=== PATIENT | female | born 1975 | race Caucasian/White ===

== ENCOUNTER 2016-12-16 11:03 | Inpatient (IN) | payer MEDICARE, OTHER ==
[~2016-12-16] VITALS: Ht 167.6 cm; Wt 52.1 kg
[2016-12-16] MEDS ORDERED: LORazepam 2 MG/ML VIAL ONE (11:12)
[2016-12-16 11:28] LABS: BASOPHILS # (AUTO) 0.06 K/uL (0.00-0.20); BASOPHILS % (AUTO) 0.4 % (0.0-2.0); EOSINOPHILS % (AUTO) 0.74 % (1.0-6.0); HEMATOCRIT 45.1 % (36-46); HEMOGLOBIN 15.3 g/dL (12.0-16.0); LYMPHOCYTES % (AUTO) 46.4 % (22.0-44.0); MEAN CORPUSCULAR HEMOGLOBIN 30.5 pg (26.0-34.0); MEAN CORPUSCULAR VOLUME 90 fL (80-100); MONOCYTES # (AUTO) 0.5 K/uL (0.1-1.0); MONOCYTES % (AUTO) 4.1 % (2.0-9.0); NEUTROPHILS # (AUTO) 6.3 K/uL (1.8-7.7); NEUTROPHILS % (AUTO) 48.4 % (40.0-70.0); PLATELET COUNT (AUTO) 253 K/uL (150-450); RED BLOOD CELL COUNT(AUTO) 5.04 MIL/uL (4.00-5.20); RED CELL DISTRIBUTION WIDTH 13.1 % (11.5-14.5)
[2016-12-16] MEDS ORDERED: LORazepam 2 MG/ML VIAL IVP ONE ×4 (11:30→12:30)
[2016-12-16] MEDS ORDERED: CALC-879 PO (11:40)
[2016-12-16] MEDS ORDERED: ENOX40DI9 SQ (11:40)
[2016-12-16] MEDS ORDERED: PARO20TA24 PO (11:40)
[2016-12-16] MEDS ORDERED: DONE5TAB PO (11:40)
[2016-12-16] MEDS ORDERED: OXYB5 PO ×2 (11:40)
[2016-12-16] MEDS ORDERED: OMEP20 PO (11:40)
[2016-12-16] MEDS ORDERED: BACL10TA PO (11:40)
[2016-12-16] MEDS ORDERED: DIME240C2 PO (11:40)
[2016-12-16] MEDS ORDERED: DIVA250T25 PO (11:40)
[2016-12-16 11:41] LABS: ANION GAP 14 mmol/L (8-16); CALCIUM, TOTAL 8.6 mg/dL (8.8-10.5); CARBON DIOXIDE 25 mmol/L (22-29); CHLORIDE 100 mmol/L (98-107); CREATININE 0.69 mg/dL (0.60-1.30); GLOMERULAR FILTR. RATE CALC > 60 mL/min (>60); POTASSIUM 3.9 mmol/L (3.5-5.1); SODIUM SERUM 139 mmol/L (136-145); UREA NITROGEN, BLOOD 12 mg/dL (7-18)
[2016-12-16 11:48] LABS: ALANINE AMINOTRANSFERASE 24 U/L (12-78); ALBUMIN 3.4 g/dL (3.4-5.0); ASPARTATE AMINOTRANSFERASE 9 U/L (15-37); BILIRUBIN,TOTAL 0.3 mg/dL (0.1-1.0); TOTAL PROTEIN, SERUM 6.9 g/dL (6.4-8.2); VALPROIC ACID 33 mcg/mL (50-100)
[2016-12-16] MEDS ORDERED: VALPROATE SODIUM 250 MG in DEXTROSE 5%-WATER 50 ML IV ONE (12:15)
[2016-12-16] MEDS ORDERED: VALPROATE SODIUM 750 MG in DEXTROSE 5%-WATER 100 ML IV ONE (13:45)
[2016-12-16] MEDS ORDERED: LORazepam 2 MG/ML VIAL IM ONE (15:00)
[2016-12-16] MEDS ORDERED: HALOPERIDOL LACTATE 5 MG/ML VIAL ONE (15:16)
[2016-12-16] MEDS ORDERED: HALOPERIDOL LACTATE 5 MG/ML VIAL IM ONE (15:30)
[2016-12-16 19:21] LABS: APPEARANCE,URINE CLOUDY (CLEAR); GLUCOSE, URINE (UA) NEGATIVE (NEGATIVE); KETONES,URINE TRACE mg/dL (NEGATIVE); LEUKOCYTE ESTERASE ,URINE NEGATIVE (NEGATIVE); OCCULT BLOOD,URINE LARGE (NEGATIVE); PH,URINE 7.5 (5.0-8.0); PROTEIN,URINE TRACE (NEGATIVE)
[2016-12-16 19:31] LABS: AMORPHOUS SEDIMENT,UR Moderate /LPF (None Seen); RBC,URINE 26-50 /HPF (0-2); WBC,URINE None Seen /HPF (0-5)
[2016-12-16 21:23] VITALS: BP 107/67
[2016-12-17] VITALS (8 sets, daily range): BP systolic 103–133; BP diastolic 52–76
[2016-12-17 06:48] LABS: BASOPHILS # (AUTO) 0.04 K/uL (0.00-0.20); BASOPHILS % (AUTO) 0.3 % (0.0-2.0); EOSINOPHILS # (AUTO) 0.02 K/uL (0.00-0.70); EOSINOPHILS % (AUTO) 0.17 % (1.0-6.0); HEMATOCRIT 42.1 % (36-46); HEMOGLOBIN 14.3 g/dL (12.0-16.0); LYMPHOCYTES # (AUTO) 4.7 K/uL (1.0-4.8); MEAN CORPUSCULAR HEMOGLOBIN 30.5 pg (26.0-34.0); MEAN CORPUSCULAR HGB CONC 33.9 G/dL (31.0-37.0); MEAN CORPUSCULAR VOLUME 90 fL (80-100); MONOCYTES # (AUTO) 1.2 K/uL (0.1-1.0); MONOCYTES % (AUTO) 8.5 % (2.0-9.0); NEUTROPHILS # (AUTO) 7.9 K/uL (1.8-7.7); PLATELET COUNT (AUTO) 223 K/uL (150-450); RED BLOOD CELL COUNT(AUTO) 4.68 MIL/uL (4.00-5.20); RED CELL DISTRIBUTION WIDTH 13.6 % (11.5-14.5); WHITE BLOOD COUNT (AUTO) 13.8 K/uL (4.5-11.0)
[2016-12-17 06:59] LABS: ANION GAP 9 mmol/L (8-16); CALCIUM, TOTAL 8.5 mg/dL (8.8-10.5); CARBON DIOXIDE 29 mmol/L (22-29); CHLORIDE 99 mmol/L (98-107); CREATININE 0.42 mg/dL (0.60-1.30); GLOMERULAR FILTR. RATE CALC > 60 mL/min (>60); POTASSIUM 3.4 mmol/L (3.5-5.1); SODIUM SERUM 137 mmol/L (136-145); UREA NITROGEN, BLOOD 10 mg/dL (7-18)
[2016-12-17] MEDS: ENOXAPARIN SODIUM 40 MG/0.4 ML PF SYRINGE SQ SCH (08:22)
[2016-12-17] MEDS ORDERED: OXYBUTYNIN CHLORIDE 5 MG TABLET PO SCH (09:00)
[2016-12-17] MEDS ORDERED: DIVALPROEX SODIUM 250 MG DR TABLET PO SCH (09:00)
[2016-12-17] MEDS ORDERED: LORazepam 2 MG/ML VIAL IVP PRN (10:45)
[2016-12-17] MEDS: OMEPRAZOLE 20 MG CAPSULE PO SCH (13:22)
[2016-12-17] MEDS: CALCIUM OYSTER SHELL 250 MG-VIT D3 125 UNITS TABLET PO SCH (13:22)
[2016-12-17] MEDS: BACLOFEN 10 MG TABLET PO SCH ×2 (13:23→21:19)
[2016-12-17] MEDS: OXYBUTYNIN CHLORIDE 5 MG TABLET PO SCH (13:24)
[2016-12-17] MEDS: PARoxetine HCL 20 MG TABLET PO SCH (13:24)
[2016-12-17] MEDS: TECFIDERA 240 MG PO SCH ×2 (13:29→21:18)
[2016-12-17] MEDS: DIVALPROEX SODIUM 500 MG ER TABLET PO SCH ×2 (15:05→21:19)
[2016-12-17] MEDS ORDERED: 0.9% SODIUM CHLORIDE 10 ML SYRINGE IVP PRN (16:00)
[2016-12-17] MEDS ORDERED: LevETIRAcetam 500 MG TABLET PO SCH (21:00)
[2016-12-17] MEDS ORDERED: DONEPEZIL HCL 5 MG TABLET PO SCH (21:00)
[2016-12-18 04:46] VITALS: BP 116/68
[2016-12-18 07:03] LABS: ANION GAP 8 mmol/L (8-16); CALCIUM, TOTAL 8.4 mg/dL (8.8-10.5); CARBON DIOXIDE 29 mmol/L (22-29); CHLORIDE 101 mmol/L (98-107); CREATININE 0.38 mg/dL (0.60-1.30); GLOMERULAR FILTR. RATE CALC > 60 mL/min (>60); POTASSIUM 3.5 mmol/L (3.5-5.1); SODIUM SERUM 138 mmol/L (136-145); UREA NITROGEN, BLOOD 11 mg/dL (7-18); VALPROIC ACID 63 mcg/mL (50-100)
[2016-12-18 07:21] LABS: BASOPHILS % (AUTO) 0.5 % (0.0-2.0); EOSINOPHILS % (AUTO) 0.4 % (1.0-6.0); HEMATOCRIT 44.2 % (36-46); HEMOGLOBIN 14.8 g/dL (12.0-16.0); LYMPHOCYTES # (AUTO) 4.5 K/uL (1.0-4.8); LYMPHOCYTES % (AUTO) 33.8 % (22.0-44.0); MEAN CORPUSCULAR HEMOGLOBIN 30.4 pg (26.0-34.0); MEAN CORPUSCULAR HGB CONC 33.4 G/dL (31.0-37.0); MEAN CORPUSCULAR VOLUME 91 fL (80-100); MONOCYTES # (AUTO) 1.4 K/uL (0.1-1.0); MONOCYTES % (AUTO) 10.5 % (2.0-9.0); NEUTROPHILS # (AUTO) 7.3 K/uL (1.8-7.7); NEUTROPHILS % (AUTO) 54.8 % (40.0-70.0); PLATELET COUNT (AUTO) 239 K/uL (150-450); RED BLOOD CELL COUNT(AUTO) 4.85 MIL/uL (4.00-5.20); RED CELL DISTRIBUTION WIDTH 13.1 % (11.5-14.5); WHITE BLOOD COUNT (AUTO) 13.3 K/uL (4.5-11.0)
[2016-12-18 07:26] VITALS: BP 108/64
[2016-12-18] MEDS: OMEPRAZOLE 20 MG CAPSULE PO SCH (08:27)
[2016-12-18] MEDS: PARoxetine HCL 20 MG TABLET PO SCH (08:27)
[2016-12-18] MEDS: TECFIDERA 240 MG PO SCH (08:27)
[2016-12-18] MEDS: BACLOFEN 10 MG TABLET PO SCH (08:28)
[2016-12-18] MEDS: OXYBUTYNIN CHLORIDE 5 MG TABLET PO SCH (08:28)
[2016-12-18] MEDS: DIVALPROEX SODIUM 500 MG ER TABLET PO SCH (08:28)
[2016-12-18] MEDS: CALCIUM OYSTER SHELL 250 MG-VIT D3 125 UNITS TABLET PO SCH (08:28)
[2016-12-18] MEDS: ENOXAPARIN SODIUM 40 MG/0.4 ML PF SYRINGE SQ SCH (08:29)
[2016-12-18] MEDS ORDERED: GADOBUTROL 1 MMOL/ML 10 ML VIAL IVP ONE (08:52)
[2016-12-18] MEDS ORDERED: LORazepam 2 MG/ML VIAL IVP ONE (11:00)
[2016-12-18 11:11] VITALS: BP 103/72
[2016-12-18 15:32] VITALS: BP 115/59
== END 2016-12-18 18:45 | DRG 101 ==
LOC: EMS 11:08 → 5S 16:36
PROVIDERS: ADMIT Internal Medicine; ATTEND Internal Medicine
DX: G40.901 Epilepsy, unspecified, not intractable, with status epilepticus (principal); Z68.1 Body mass index [BMI] 19.9 or less, adult; G35 Multiple sclerosis; R22.1 Localized swelling, mass and lump, neck; G31.9 Degenerative disease of nervous system, unspecified; Z86.73 Personal history of transient ischemic attack (TIA), and cerebral infarction without residual deficits; Z88.1 Allergy status to other antibiotic agents; R63.6 Underweight
CPT/HCPCS: 70450; 87081; 92610; 93005; 93041; 96361; 96365; 96366; 96372; 96375; 96376; 99291; 99292; A9585; J1630; J1650; J2060; J3490; J7060

== ENCOUNTER → 2021-10-07 | Outpatient (CLI) | payer MEDICARE, OTHER ==
[~2021-10-07] MED LIST: BACL10TA PO; CALC-1085 PO; DIME240C2 PO; DIVA-111 PO; DONE5TAB5 PO; ENOX40DI9 SQ; OMEP20 PO; OXYB5TAB20 PO; PARO-38 PO
== END | disposition home or self-care (01) ==
LOC: HBOWC 10:08
PROVIDERS: ATTEND Emergency Medicine
DX: L89.314 Pressure ulcer of right buttock, stage 4 (principal); E11.9 Type 2 diabetes mellitus without complications; R22.2 Localized swelling, mass and lump, trunk; G35 Multiple sclerosis; F32.9 Major depressive disorder, single episode, unspecified; Z79.899 Other long term (current) drug therapy
CPT/HCPCS: 99205; G0463; Z7500